=== PATIENT | female | born 1965 | race Caucasian/White ===

== ENCOUNTER 2016-09-24 10:16 | Outpatient (CLI) | payer OTHER | END 2016-09-24 10:17 | disposition home or self-care (01) | DX: Z12.31 Encounter for screening mammogram for malignant neoplasm of breast (principal) ==

== ENCOUNTER 2017-10-18 16:09 | Outpatient (CLI) | payer BC ==
--- NOTE | 2017-10-20 13:56 | Mammography Report ---
DIGITAL SCREENING MAMMOGRAM: 10/18/2017 CLINICAL INDICATION: A 52-year-old for screening. COMPARISON: 09/2016, 10/2011, 09/2010, 08/2009. TECHNIQUE: Routine CC and MLO projections as well as bilateral laterally exaggerated craniocaudal views were obtained of the breasts. FINDINGS: The breasts again demonstrate heterogeneously dense fibroglandular parenchyma bilaterally. Coarse and punctate, typically benign calcifications are present. No suspicious masses, clustered microcalcifications, or regions of architectural distortion are identified. IMPRESSION: BENIGN FINDINGS. RECOMMENDATION: Routine annual screening unless otherwise clinically indicated. BI-RADS CATEGORY 2 - BENIGN FINDINGS. STANDARD QUALIFYING STATEMENTS: 1. This examination was reviewed with the aid of Computer-Aided Detection (CAD). 2. A negative or benign imaging report should not delay biopsy if clinically suspicious findings are present. Consider surgical consultation if warranted. More than 5% of cancers are not identified by imaging. 3. Dense breasts may obscure an underlying neoplasm. TD: 10/20/2017 13:55
== END 2017-10-18 16:10 | disposition home or self-care (01) ==
LOC: DI.N 16:09
PROVIDERS: ATTEND Family Medicine
DX: Z12.31 Encounter for screening mammogram for malignant neoplasm of breast (principal)
CPT/HCPCS: 77067

== ENCOUNTER 2018-10-23 14:53 | Outpatient (CLI) | payer BC ==
--- NOTE | 2018-10-24 09:41 | Mammography Report ---
Reason: SCREENING MAMMO Procedure Date: 10/23/2018 Accession Number: [id number] / [id number] Procedure: MGN - Screening Mammo Dig Bilat CPT Code: FULL RESULT: EXAM: Screening Mammo Dig Bilat DATE: 10/23/2018 3:19 PM CLINICAL HISTORY: Screening examination. No reported risk factors. TECHNIQUE: (B) - Bilateral CC, laterally exaggerated CC, MLO views were obtained. COMPARISON: 10/18/2017 through 04/02/2013. PARENCHYMAL PATTERN: (D) - The breast(s) demonstrate(s) heterogeneously dense fibroglandular parenchyma. FINDINGS: Redemonstration of coarse typically benign calcifications. There are no suspicious masses, calcifications, or areas of distortion. IMPRESSION: Benign findings. BI-RADS category 2. RECOMMENDATION: (ANNUAL) - Recommend routine annual screening mammography. BI-RADS CATEGORY: (2) - Benign Findings. STANDARD QUALIFYING STATEMENTS: 1. This examination was not reviewed with the aid of Computer-Aided Detection (CAD). 2. A negative or benign imaging report should not preclude biopsy if clinically suspicious findings are present. 3. Dense breasts may obscure an underlying neoplasm. 4. This examination was reviewed without the aid of 3D breast imaging (tomosynthesis).
== END 2018-10-23 14:54 | disposition home or self-care (01) ==
LOC: DI.N 14:53
DX: Z12.31 Encounter for screening mammogram for malignant neoplasm of breast (principal)
CPT/HCPCS: 77067

== ENCOUNTER 2021-05-19 18:46 | Outpatient (CLI) | payer OTHER ==
--- NOTE | 2021-05-20 10:59 | Ultrasound Report ---
PROCEDURE: Pelvic w/Transvaginal INDICATIONS: PELVIC PAIN TECHNIQUE: Real-time scanning was performed of the pelvic organs, with image documentation. Additional endovagi nal scanning was necessary due to incomplete visualization of the adnexal and endometrial structures by transabdominal scanning. COMPARISON: None. FINDINGS: No pathologic free abdominal or pelvic fluid. Uterus: Uterus is normal in size at 6.3 x 2.6 x 4.7 cm. Myometrium is heterogeneous in echotexture. No discrete uterine fibroid. The endometrium measures 4.9 mm in combined thickness. No endometrial mass or fluid is seen. Ovaries: Right ovary measures 1.9 x 0.7 x 1.6 cm in size with a volume of 1 cc. Left ovary measures 1.6 x 0.7 x 1.9 cm in size with a volume of 1.1 cc. No solid appearing ovarian lesion. IMPRESSION: 1. Mildly heterogeneous myometrial echotexture, no discrete uterine fibroid. No endometrial mass or f luid. 2. No gross abnormalities are seen in the right atrophic appearing bilateral ovaries. Reviewed by: David Arroyo MD on 05/20/2021 10:58 AM PST Approved by: David Arroyo MD on 05/20/2021 10:58 AM PST Station ID: [id number]
== END 2021-05-19 18:47 | disposition home or self-care (01) ==
LOC: DI 18:46
PROVIDERS: ATTEND Specialist
DX: R10.2 Pelvic and perineal pain (principal)

== ENCOUNTER 2022-06-16 10:21 | Outpatient (CLI) | payer OTHER ==
--- NOTE | 2022-06-16 11:32 | DEXA Report ---
PROCEDURE: Dexa Spine and/or Hip INDICATIONS: POST MENOPAUSAL TECHNIQUE: Dual energy x-ray absorptiometry (DXA) was performed on a [employer] System. Regions measur ed are the AP Spine, femoral neck, and if needed forearm. COMPARISON: None. FINDINGS: Lumbar Spine: Bone Mineral Density 1.19 g/cm/cm,T score 0.1, Left Femoral Neck: Bone Mineral Density 0.84 g/cm/cm, T score -1.4, Left Hip: Bone Mineral Density 0.99 g/cm/cm,T score -0.1, (T score greater or equal to -1.0: NORMAL) (T score from -1.1 to -2.4: OSTEOPENIA) (T score less than or equal to -2.5 to: OSTEOPOROSIS) Impression: Osteopenia of the left femoral neck. Patients with diagnosis of osteoporosis or osteopenia should have regular bone mineral density assess ment. For those eligible for Medicare, routine testing is allowed once every 2 years. Testing frequ ency can be increased for patients who have rapidly progressing disease or for those who are receivin g medical therapy to restore bone mass. Reviewed by: Andres Kim MD on 06/16/2022 11:31 AM PST Approved by: Andres Kim MD on 06/16/2022 11:31 AM PST Station ID: [id number]
== END 2022-06-16 10:22 | disposition home or self-care (01) ==
LOC: DI 10:21
PROVIDERS: ATTEND Family Medicine
DX: M85.88 Other specified disorders of bone density and structure, other site (principal)

== ENCOUNTER 2023-05-05 15:03 | Outpatient (CLI) | payer OTHER ==
--- NOTE | 2023-05-06 13:12 | Mammography Report ---
BILATERAL DIGITAL SCREENING MAMMOGRAM 3D/2D WITH EXAGGERATED CC: 05/05/2023 CLINICAL: Routine screening. Comparison is made to exams dated: 10/23/2018 mammogram, 12/04/2019 mammogram, and 10/18/2017 mammogram - [facility]. Both breasts are heterogeneously dense, which may obscure small masses (category c / 51-75% glandular tissue). No significant masses, calcifications, or other findings are seen in either breast. There has been no significant interval change. IMPRESSION: NEGATIVE There is no mammographic evidence of malignancy. A 1 year screening mammogram is recommended. Based on the Tyrer Cuzick model (a risk assessment model) the patients lifetime risk is 19.9% and he r 10 year risk is 7.6%. According to the ACR, ACS, and NCCN guidelines, an annual breast MRI exam marti ng with mammogram is recommended if the patients lifetime risk is 20% or greater. This exam was interpreted at Station ID: [id number]. NOTE: For mammograms, a report in lay terms will be sent to the patient. Approximately 15% of breast malignancies will not be visualized mammographically. In the management of a palpable breast mass, a negative mammogram must not discourage biopsy of a clinically suspicious lesion. Electronically Signed By: Raymon [email or web address]:05/06/2023 09:00:35 letter sent: No_Letter ACR BI-RADS Category 1: Negative 3341F PARENCHYMAL PATTERN: (D) - The breast(s) demonstrate(s) heterogeneously dense fibroglandular mari oleary. BI-RADS CATEGORY: (1) - 1 Mammogram [id number] 1 year screening LATERALITY: (B)
== END 2023-05-05 15:04 | disposition home or self-care (01) ==
LOC: DI 15:03
DX: Z12.31 Encounter for screening mammogram for malignant neoplasm of breast (principal); R92.333 Mammographic heterogeneous density, bilateral breasts